=== PATIENT | female | born 2000 | race Caucasian/White ===

== ENCOUNTER 2023-07-01 16:12 | Emergency (ER) | payer BC, SELFPAY ==
[2023-07-01 16:18] VITALS: BP 129/97; PULSE 96; RESP 18; TEMP 36.4; O2SAT 98
[2023-07-01 16:20] VITALS: BP 129/97; PULSE 96; RESP 18; TEMP 36.4; O2SAT 98
--- NOTE | 2023-07-01 16:20 | ED.URI ---
HPI - URI/Sore Throat General Chief Complaint: Upper Respiratory Infection Stated Complaint: Chest pain;Shortness of breath Time Seen by Provider: 07/01/23 16:15 Source: patient Mode of arrival: ambulatory Limitations: no limitations History of Present Illness HPI Narrative: Patient is a 23-year-old female presents with congestion, cough, sore throat, body aches since . Patient tested negative for COVID and flu yesterday. Patient states when she was walking in the cold fluids feeling like the or burning and caused a panic patient has known anxiety. Once patient was inside symptoms resolved. Denied any dizziness or pain radiating. Related Data Home Medications Medication Instructions Recorded Confirmed escitalopram oxalate 10 mg tablet 10 mg PO DAILY 04/05/22 07/01/23 Allergies Allergy/AdvReac Type Severity Reaction Status Date / Time No Known Allergies Allergy Verified 07/01/23 16:20 Review of Systems Review of Systems: All systems reviewed & are unremarkable except as noted in HPI and below Constitutional: Constitutional: Reports body ache(s), Denies chills, Denies fatigue, Denies fever(s), Denies headache(s), Denies malaise and Denies weakness Eyes: Eyes: Denies blurry vision, Denies itchy eyes and Denies loss of vision ENT: Denies otalgia, Denies headache(s), Reports nasal congestion, Denies sinus pain and Reports sore throat Cardiovascular: Cardiovascular: Denies chest pain, Denies irregular heart rhythm and Denies dyspnea Respiratory: Respiratory: Reports cough and Denies dyspnea Gastrointestinal: Gastrointestinal: Denies abdominal pain, Denies diarrhea, Denies nausea and Denies vomiting Musculoskeletal: Musculoskeletal: Denies back pain, Denies myalgias and Denies arthralgias Integumentary/Breasts: Skin/Breast: Denies pruritus and Denies rash Neurologic: Denies headache(s), Denies loss of vision and Denies weakness Psychiatric: Psychiatric: Reports no additional psychiatric complaints Endocrine: Endocrine: Denies fatigue Allergic/Immunologic: Allergic/Immunologic: Denies itchy eyes PMFSH Past Medical History Medical History Anxiety Surgical History Surgical History Hx of tonsillectomy Family History Family History Other Hypertension Social History Social History Smoking status: Never smoker Alcohol intake: never Substance use: never Substance use type: does not use Lack of Transportation: No Lack of Food: Never True Current Housing: I Have Housing Concerned About Future Housing: No Difficulty Paying Gas/Electric Bills: No Difficulty Paying for Meds: No Currently Unemployed: No Education: High School Diploma/GED Comments At time of signature, agree with nursing past medical, surgical, social and family history. There is no relevant family history pertinent to the presenting complaint. Exam Const: General: cooperative, healthy appearing, comfortable, no acute distress and well nourished Nutritional Appearance: well nourished Orientation/consciousness: patient oriented x3 Limitations: no limitations HENMT: Head: normal to inspection, normocephalic and atraumatic Ears: hearing grossly normal bilaterally, external ears normal, TM's normal bilaterally, EAC's normal and no periauricular adenopathy Face/Nose/Sinus: Normal external nose present, Abnormal mucous membranes and turbinates present erythematous bilateral and diffuse, normal facial exam, sinuses nontender and face symmetric Face and sinus: normal facial exam, sinuses nontender and face symmetric Mouth: Yes Normal oral and palatal mucosa present, Yes lip normal, Yes tongue normal, Yes Normal salivary glands and ducts present, Yes oropharynx normal and Yes moist mucous membrane
== END 2023-07-01 16:45 | disposition home or self-care (01) ==
PROVIDERS: Emergency Provider Nurse Practitioner Family; PCP Pediatrics
DX: J06.9 Acute upper respiratory infection, unspecified (principal); F41.9 Anxiety disorder, unspecified
CPT/HCPCS: 99213; G0463

== ENCOUNTER 2023-07-02 09:34 | Emergency (ER) | payer BC, SELFPAY ==
--- NOTE | ~2023-07-02 | XR_ITS ---
Clinical Indication: Shortness of breath PA and lateral views of the chest: Comparison: None Findings: The lungs are clear, without evidence of focal consolidation or pleural effusion. Cardiome diastinal silhouette is within normal limits. Bones and soft tissues are unremarkable. Impression: Normal chest. Reviewed, dictated and finalized at [facility]. MEDICATION Impression: Normal chest.
[2023-07-02 10:07] VITALS: BP 115/80; PULSE 135; RESP 20; TEMP 36.1; O2SAT 97
--- NOTE | 2023-07-02 10:58 | ED.GENADULT ---
HPI - General Adult General Chief complaint: Upper Respiratory Infection Stated complaint: X-ray Source: patient Mode of arrival: ambulatory Limitations: no limitations History of Present Illness HPI narrative: Patient presents for evaluation of sick symptoms. Five days ago she developed some sinus congestion, nasal drainage and sore throat. Yesterday she developed a cough and shortness of breath. Cough is intermittently productive. She denies any fever chills, nausea, vomiting, diarrhea. She took a COVID test at home twice four days ago, both of which were negative. She had a COVID test at [facility] three days ago which was also negative. She came here yesterday for evaluation and was given a script for albuterol. She came in today with hopes to have a CXR. Her parents with whom she lives have similar symptoms. She has tried dayquil and nyquil with some improvement in her symptoms thereafter. She does not smoke. Related Data Home Medications Medication Instructions Recorded Confirmed escitalopram oxalate 10 mg tablet 10 mg PO DAILY 04/05/22 07/01/23 Allergies Allergy/AdvReac Type Severity Reaction Status Date / Time No Known Allergies Allergy Verified 07/01/23 16:20 Review of Systems Review of Systems: CONSTITUTIONAL: Denies fever, chills, or sweats. EYES: Denies visual changes, redness, or discharge. ENT: Reports sinus congestion, drainage and sore throat CARDIOVASCULAR: Denies chest pain, palpitations, or edema. RESPIRATORY: Reports cough and SOB GASTROINTESTINAL: Denies abdominal pain, nausea, vomiting, or diarrhea. GENITOURINARY: Denies dysuria or hematuria. SKIN: Denies rash or itching. MUSCULOSKELETAL: Denies back pain, joint pain, or myalgia. NEUROLOGIC: Denies headache, numbness, dizziness, or weakness. PSYCHIATRIC: Denies anxiety or depression. [facility] Past Medical History Medical History Anxiety Surgical History Surgical History Hx of tonsillectomy Family History Family History Other Hypertension Social History Social History Smoking status: Never smoker Alcohol intake: never Substance use: never Substance use type: does not use Lack of Transportation: No Lack of Food: Never True Current Housing: I Have Housing Concerned About Future Housing: No Difficulty Paying Gas/Electric Bills: No Difficulty Paying for Meds: No Currently Unemployed: No Education: High School Diploma/GED Exam Narrative: GENERAL: Well-appearing, well-nourished, and in no acute distress. HEAD: Normocephalic, atraumatic. EYES: PERRLA and EOMI. ENT: Nares clear, no rhinorrhea or epistaxis. Mucous membranes moist. Oropharynx without tonsillar hypertrophy exudate or other lesions. Bilateral TMs pearly bundy nonbulging NECK: Supple. No adenopathy or masses. No carotid bruits or JVD CHEST: Clear to auscultation. No respiratory distress. No wheezes rales or rhonchi HEART: Regular rate and rhythm. No murmur heard. Normal peripheral pulses. ABDOMEN: Soft, nontender, nondistended, normal active bowel sounds. EXTREMITIES: Normal range of motion. No edema. SKIN: Warm, dry, no rash. NEURO: No focal deficits. Alert and oriented x3. PSYCH: Normal mood and affect. Course Course Emergency Course: This is a 23-year-old female who presented for evaluation of sick symptoms. Influenza and COVID were negative. Strep positive. Will treat with amoxicillin. DC with tessalon. OTC agents for symptom management. Follow up with primary provider. Go to the ER for worsening symptoms. Pt in agreement with plan of care. Level of Care: Express Care Visit Vital Signs Vital signs: Vital Signs Temperature 36.1 C L 07/02/23 10:07 Pulse Rate 135 H
== END 2023-07-02 11:33 | disposition home or self-care (01) ==
PROVIDERS: Emergency Provider Nurse Practitioner; PCP Pediatrics
DX: J02.0 Streptococcal pharyngitis (principal); R05.9 Cough, unspecified; Z20.822 Contact with and (suspected) exposure to COVID-19; F41.9 Anxiety disorder, unspecified
CPT/HCPCS: 71046; 87426; 87804; 87880; 99213; C9803; G0463

== ENCOUNTER 2024-08-27 08:41 | Outpatient (CLI) | payer BC, SELFPAY ==
--- OUTSIDE RECORDS SUMMARY | 2024-08-27 09:02 | XMS_ITS | Clinical Summary ---
Author Organization [facility] Address [address] [place] [address]. [place], [place] [id number] [place] [id number] Care Team Providers Care Crab Backer Name Role Phone Keisha Peralta MD Primary Care Provider [phone] Allergies No known active allergies Medications LEXAPRO 10 MG tablet Active LEXAPRO 5 MG tablet Active Active Problems Problem Noted Date Diagnosed Date Migraine with aura and witho ut status migrainosus, not intractable 01/16/2024 Anxiety 01/16/2024 Family History Medical History Relation Comments Hypertension Father Basal cell carcinoma Maternal Grandfather prediabet Mother Breast Cancer Paternal Aunt Basal cell carcinoma Paternal Grandmother Relation Status Comments Father Alive Maternal Grandfather Alive Mother Alive Paternal Aunt Alive Paternal Grandmother Alive Social History Tobacco Use Types Packs/Day Years Used Date Smoking Tobacco: Never Passive Smoke Exposure: Never Smokeless Tobacco: Never Alcohol Use Standard Drinks/Week Comments Not Currently 0 (1 standard drink = 0.6 oz pur e alcohol) PHQ-2 Answer Date Recorded Patient Health Questionnaire-2 Score 1 01/10/2024 Comments No Sex and Gender Information Value Date Recorded Sex Assigned at Not on file Legal Sex Female 11:45 AM CDT Gender Identity Not on file Sexual Orientation Not on file Last Filed Vital Signs Vital Sign Reading Time Taken Comments Blood Pressure 125/87 01/10/2024 10:12 AM CDT Pulse 86 01/10/2024 10:12 AM CDT Temperature - - Respiratory Rate 16 01/10/2024 10:12 AM CDT Oxygen Saturation 98% 01/10/2024 10:12 AM CDT Inhaled Oxygen Concentration - - Weight 83.5 kg (184 lb) 01/10/2024 10:12 AM CDT Height 172.7 cm (5' 8 ) 01/10/2024 10:12 AM CDT Body Mass Index 27.98 01/10/2024 10:12 AM CDT Plan of Treatment Health Maintenance Due Date Last Done Comments Cervical Cancer Screening Pap Smear (Age 21 to 29) Every 3 Years 2002 Cervical Cancer Screening 2002 Annual Physical 2005 Hepatitis C 01/27/2020 COVID-19 Vaccine ( season) 2024 02/27/2021, 02/06/2021 Influenza Adult (#1) 2024 04/29/2009, 03/22/2008, 06/04/2007 PHQ-2 (Physician [place]) 07/29/2024 01/10/2024 PHQ-2 (Physician [place]) 01/09/2025 01/10/2024 DTaP, Tdap and Td Vaccines (7 - Td or Tdap) 06/05/2032 06/05/2022, 02/23/2013, 06/04/2007, Additional history exists Hepatitis B Vaccines Completed 02/01/2003, 2002, 2002 Pneumococcal Vaccine: Pediatrics (0 to 5 Years) and At-Risk Patients (6 to 64 Years) Aged Out 05/03/2003, 02/01/2003, 2002, Additional history exists No longer eligible based on patient's age to complete this topic Meningococcal Vaccine Completed 02/27/2018, 013 Meningococcal B Vaccine Completed 08/30/2018, 02/27 HPV Vaccines Completed 03/03/2019, 08/2018, 02/27/2018 RSV Immunizations Under 20 Months Aged Out No longer eligible based on patient's age to complete this topic Insurance [facility] Care Teams Crab Backer Relationship Specialty Start Date End Date Keisha Peralta MD [address] [place] [address] [id number] PCP - General FAMILY PRACTICE 01/10/24
--- OUTSIDE RECORDS SUMMARY | 2024-08-27 09:02 | XMS_ITS | Continuity of Care Document ---
Author Organization [facility] Address [address] [facility] [address] [place] [address] Phone Care Team Providers Care Candlemaking Laborer Name Role Phone Lyn OD, Damon Unavailable Unavailable Procedures Procedure Date Eye Exam, New Patient Refraction Advance Directives Directive Yes / No Effective Date File Name No Information Encounters Encounter Description Practice Location Reason(s) For Visit Diagnoses Date Provider Providers Copied on Encounter [facility], [address], [place], [place], [id number], tel:[phone] [facility] No Information 1-200 9 Lyn OD Damon. [address] , [address], [place], [address], [place]. tel:[phone] Family History Family Member Type Diagnosis Age At Onset No Information Payers Payer name Insurance type Covered alliance party ID Authoriza tion(s) P CI [id number] Social History Type Description Quantity Date Captured Comments Sex Female Smoking Status No Information Chief Complaint And Reason For Visit No Information Reason For Referral Reason For Referral No Information History Of Present Illness Encounter Date Complaint History Of Prese nt Illness No Information Functional Status Date Functional Assessmen t No Information Instructions Date Instruction Additional Infor mation No Information Assessments Type Assessment Date No Information Patient Care Teams Name Effective Dates (start - stop) Status Members No Information
[2024-08-27 09:49] LABS: Influenza A QL RT-PCR Negative (Negative); Influenza B QL RT-PCR Negative (Negative); RSV RNA, RT-PCR Negative (Negative); SARS-CoV-2 RNA PCR Negative (Negative)
[2024-08-27 10:26] LABS: Strep Group A RT-PCR NOT DETECTED (Negative)
== END 2024-08-27 08:42 | disposition home or self-care (01) ==
LOC: ANHLAB 08:42
PROVIDERS: PCP Internal Medicine; Visit Provider Internal Medicine
DX: J02.9 Acute pharyngitis, unspecified (principal); R05.9 Cough, unspecified
CPT/HCPCS: 87637; 87651